=== PATIENT | female | born 2005 | race Caucasian/White ===

== ENCOUNTER 2024-08-22 17:19 | Emergency (ER) | payer MEDICAID, SELFPAY ==
--- NOTE | ~2024-08-22 | CT_ITS ---
CLINICAL HISTORY: abdominal pain n v d intractable CT Abdomen and Pelvis WO Contrast COMPARISON: None FINDINGS: Normal liver. Normal spleen. Normal kidneys. Normal adrenal glands. Normal pancreas. Status post cholecystectomy. No abnormal biliary dilation. No evidence of bowel obstruction or colitis. Normal appendix. Poorly distended bladder. Unremarkable uterus. Right ovarian follicle noted. Unremarkable left ovary. No ascites. No pneumoperitoneum. No lymphadenopathy. No acute fracture. No abdominal aortic aneurysm. IMPRESSION: No acute findings. This document has been electronically signed by: Kunal Rao MD on 08/23/2024 04:03:18
[2024-08-22 17:27] VITALS: BP 140/70; PULSE 100; O2SAT 100
[2024-08-22 17:31] VITALS: BP 138/99; PULSE 91; RESP 19; TEMP 36.6; O2SAT 100; BMI 24.6
[2024-08-22 17:55] LABS: MANUAL DIFF FLAG NO
[2024-08-22 18:15] LABS: Alanine Aminotransferase 14 U/L (0-31); Albumin Level 4.8 g/dL (3.5-5.0); Alkaline Phosphatase 68 U/L (39-117); Anion Gap 20 (12-20); Aspartate Amino Transferase 22 U/L (5-31); Bilirubin Direct 0.2 mg/dL (0.0-0.5); Bilirubin Total 0.6 mg/dL (0.0-1.0); Blood Urea Nitrogen 8 mg/dL (9-16); Calcium 10.2 mg/dL (8.4-10.2); Carbon Dioxide 15 mmol/L (22-29); Chloride 107 mmol/L (96-108); Creatinine Clr Calc Pharmacy 96.1; Estimated Glomerular Filt Rate > 60; Glucose Random 118 mg/dL (60-115); Lipase 11 U/L (8-78); Potassium 3.1 mmol/L (3.3-5.1); Sodium 139 mmol/L (135-145); Total Protein 7.8 g/dL (6.5-8.0)
[2024-08-22 18:17] LABS: HCG Quantitative < 2 mIU/mL
[2024-08-22 18:47] LABS: Basophils Absolute Auto 0.1 X10*3/uL (0.0-0.2); Basophils Percent Auto 0.5 % (0-2); Hematocrit 41.1 % (37.0-47.0); Imm Gran Abs Auto 0.19 X10*3/uL (0.00-0.03); Imm Gran Pct Auto 1.3 % (0.0-0.4); Lymphocytes Absolute Auto 2.3 X10*3/uL (1.2-4.9); Mean Corpuscular HGB Conc 34.1 g/dl (31.0-35.0); Mean Corpuscular Hemoglobin 30.2 pg (27.0-33.0); Mean Corpuscular Volume 88.8 fL (80.0-98.0); Mean Platelet Volume 12.5 fL (9.4-12.3); Monocytes Absolute Auto 0.5 X10*3/uL (0.1-1.2); Monocytes Percent Auto 3.5 % (2-11); Neutrophils Absolute Auto 11.6 x10*3/uL (2.0-8.3); Neutrophils Percent Auto 78.7 % (45-73); Platelet Count 422 X10*3/uL (160-400); Red Blood Count 4.63 X10*6/uL (4.20-5.50); Red Cell Distribution Width 12.6 % (11.0-16.0); White Blood Count 14.7 X10*3/uL (4.8-10.8)
--- NOTE | 2024-08-22 20:10 | ED_ITS ---
HPI - General Adult General Chief complaint: Abdominal Pain Stated complaint: L SIDED ABD PAIN X 2 DAYS Time Seen by Provider: 08/22/24 21:16 Source: patient Mode of arrival: ambulatory Limitations: no limitations History of Present Illness ED Provider: BRENT PADGETT narrative: 19 yo female with reported hx of intermittent stomach issues - with episodes related to ETOH. She notes she drank a lot of ETOH on Thursday night and since then has upper abdominal pain n/v/d. She states she feels weak and dehydrated. I asked her if she has alcoholism but she denies. She states I don't know why this is happening. She then tells me she has had this before but not to this extent. Her visitor is also in the room and not making eye contact with me or engaging in history. Patient notes she cannot keep anything down. She has upper abdominal pain. She has had prior cholecystectomy. She only wants IV in hand. She notes she has a headache as well and feels pressure in her head. No other hx reported such as travel/abx use. complaint: n/v/d upper abdominal pain Onset (ago): day(s) (since Thursday) Location: abdomen Radiation: non-radiation Severity: moderate Quality: constant Pain Consistency: constant Relieving factors: none Exacerbating factors: eating Associated symptoms: headaches, loss of appetite, malaise and nausea/vomiting Treatments prior to arrival: none Related Data Previous Rx's ?Medication ?Instructions ?Recorded cefuroxime axetil 250 mg tablet 250 mg PO BID 7 days #14 tabs 08/23/24 cyclobenzaprine 10 mg tablet 10 mg PO TID PRN muscle spasm #20 08/23/24 tabs ondansetron 4 mg disintegrating 4 mg PO Q8H PRN nausea and 08/23/24 tablet vomiting #20 tabs Allergies Allergy/AdvReac Type Severity Reaction Status Date / Time latex Allergy Unknown Verified 08/22/24 17:36 Review of Systems 2 Review of Systems: Constitutional : No Weight loss, No Fever, No Chills ENT/Mouth : No sore throat, No Rhinorrhea Eyes: No Swelling, No Redness Cardiovascular : No Chest Pain, No SOB, NoEdema Respiratory : No Cough, No Sputum, No Wheezing Gastrointestinal : Positive Nausea, Positive Vomiting, positive Diarrhea, positive abdominal Pain, No Hematochezia, No Melena Genitourinary : No Dysuria, No Urinary Frequency, No Hematuria, No Urgency Musculoskeletal : No joint pain, No Myalgias, No Joint Swelling Skin : No Skin Lesions, No rash Neuro : No Weakness, No Numbness, No Dizziness, pos Headache All other systems reviewed and are negative. [facility] Past Medical History Attestation statement: The following information was validated with the patient. Source: old records reviewed Medical History (Updated 08/23/24 @ 05:21 by Mayelin Joyce DO) No pertinent past medical history Surgical History (Updated 08/22/24 @ 22:09 by Mayelin Joyce DO) S/P cholecystectomy Social History Social History (Updated 08/22/24 @ 22:09 by Mayelin Joyce DO) Alcohol intake: current Alcohol intake frequency: does not drink Patient Tobacco Use Status: Tobacco use Unknown Smoked in Last 30 Days: No Use of substances other than those prescribed or required for medical reasons: No Advance Directives: No Advance Directives Information Provided: No Do you have a plan to hurt others: No Plan Physical Exam ED Vital Signs: Vital Signs - 24 hr 08/22/24 17:31 08/22/24 21:03 08/23/24 00:22 Temperature 98 F 98.3 F 98.2 F Pulse Rate 91 75 74 Respiratory Rate 19 16 16 Blood Pressure 138/99 H 142/85 H 121/68 Pulse Oximetry 100 100 97 Oxygen Delivery Method Room Air Room Air Room Air 08/23/24 04:23 Temperature 98.6 F Pulse Rate 75 Respiratory Rate 12 Blood Pressure 118/77 Pulse Oximetry 99 Oxygen Delivery Method Room Air BMI result Body Mass Index 24.6 Appearance: Alert. Oriented X3. No acute distress. Very anxious, walking around without issue Eyes: Pupils equal, round and reactive to light. ENT: Pharynx normal. Neck: Normal inspection. Neck supple. CVS: Normal heart rate and rhythm. Pulses normal. Respiratory: No respiratory distress. Breath sounds normal. Abdomen: Soft and moderate epigastric ttp Skin: Skin warm and dry. pale skin color. Normal skin turgor. Extremities: No lower extremity edema. No calf ttp Neuro: Oriented X 3. No motor deficit. No sensory deficit. CN2-12 intact Course Course Course Narrative: RME, this is a rapid medical exam performed by Cordell Cruz please refer to primary provider for complete H&P- 19 year old female presents for evaluation of abdominal and nausea. Plan for labs Reevaluation(s) Reevaluation #1: infection suspected at 255am lactic acid, cultures and ceftriaxone ordered. Reevaluation #2: she is tolerating PO at this time Reevaluation #3: patient has repeatedly asked how will you treat my pain after work up and findings I do not feel narcotics are warranted in a 19 yo female Medications Administered Discontinued Medications Generic Name Dose Route Start Last Admin Trade Name Dilshad PRN Reason Stop Dose Admin Acetaminophen 975 mg 08/23/24 03:51 08/23/24 03:54 Acetaminophen 325 Mg Tablet PO 08/23/24 03:52 975 mg ONCE ONE Administration Al Hydroxide/Mg Hydroxide 15 ml 08/23/24 04:16 08/23/24 04:38 Magnesium Hydrox/Alum Hydrox 30 Ml Oral.Susp PO 08/23/24 04:17 15 ml ONCE ONE Administration Ceftriaxone Sodium 1 gm 08/23/24 02:54 08/23/24 03:36 Ceftriaxone Sodium 1 Gm Vial IVPUSH 08/23/24 02:55 1 gm ONCE ONE Administration Diazepam 5 mg 08/22/24 23:30 08/22/24 23:39 Diazepam 10 Mg/2 Ml Cartridge IVPUSH 08/22/24 23:31 5 mg STAT STA Administration Diphenhydramine HCl 25 mg 08/22/24 21:39 08/22/24 22:29 Diphenhydramine Hcl 50 Mg/Ml Vial IVPUSH 08/22/24 21:40 25 mg ONCE ONE Administration Famotidine 20 mg 08/22/24 21:39 08/22/24 22:27 Famotidine/Pf 20 Mg/2 Ml Vial IVPUSH 08/22/24 21:40 20 mg ONCE ONE Administration Lactated Ringer's 1,000 mls @ 999 mls/hr 08/22/24 21:39 08/22/24 23:26 Lr IV 08/22/24 22:39 Infused .Q1H1M ONE Infusion Lactated Ringer's 1,000 mls @ 999 mls/hr 08/22/24 21:55 08/22/24 23:26 Lr IV 08/22/24 22:55 Infused .Q1H1M ONE Infusion Ketorolac Tromethamine 15 mg 08/22/24 21:39 08/22/24 22:25 Ketorolac Tromethamine 15 Mg/Ml Vial IVPUSH 08/22/24 21:40 15 mg ONCE ONE Administration Lidocaine HCl 15 ml 08/23/24 04:16 08/23/24 04:40 Lidocaine Hcl Viscous 2 % 15 Ml Solution MUCOUS MEM 08/23/24 04:17 15 ml ONCE ONE Administration Metoclopramide HCl 10 mg 08/22/24 21:39 08/22/24 22:27 Metoclopramide Hcl 10 Mg/2 Ml Vial IVPUSH 08/22/24 21:40 10 mg ONCE ONE Administration Medical Decision Making Medical Decision Making [facility] Narrative: 19 yo female with reported hx of intermittent stomach issues now here with n/v/d and upper abdominal pain since heavy ETOH use on Thursday. She has no other risk factors. At this time she is very anxious and refusing IV other than in hand. I am going to obtain her labs, LFTs, UA, lipase - start on IVF x 2L, supportive medications. Given her complaint I suspect pancreatitis, gastritis, viral syndrome, dehydration lipase is normal doubt pancreatitis. Differential Diagnosis Differential Diagnoses: The differential diagnosis associated with the presentation includes pancreatitis, ETOH induced gastritis, dehydration, lyte abnormality, THC emesis syndrome Admission/Observation Consideration of admission/observation: Escalation of care including admission/observation considered has not vomited in front of staff. she has been going to bathroom and drinking water against advice repeat BMP reassuring CT scan no findings she continues to ask for pain medications I see no clinical indication she is positive for THC we are going to give her a GI cocktail and plan will be to DC home no hydro or perinephric stranding on CT scan I did talk to her about THC use and her symptoms - she states she has been told before this might be cannabinoid hyperemesis syndrome Lab Data [facility] Lab Attestation statement: I reviewed the patient's lab results. repeat labs reassuring. 08/22/24 17:49 08/23/24 01:00 Labs: Lab Results 08/22/24 08/23/24 08/23/24 Range/Units 17:49 01:00 02:28 WBC 14.7 H (4.8-10.8) X10*3/uL RBC 4.63 (4.20-5.50) X10*6/uL Hgb 14.0 (12.0-16.0) g/dl Hct 41.1 (37.0-47.0) % MCV 88.8 (80.0-98.0) fL MCH 30.2 (27.0-33.0) pg MCHC 34.1 (31.0-35.0) g/dl RDW 12.6 (11.0-16.0) % Plt Count 422 H (160-400) X10*3/uL MPV 12.5 H (9.4-12.3) fL Immature Gran % (Auto) 1.3 H (0.0-0.4) % Neut % (Auto) 78.7 H (45-73) % Lymph % (Auto) 16.0 L (20-40) % Clark % (Auto) 3.5 (2-11) % Eos % (Auto) 0.0 (0-4) % Baso % (Auto) 0.5 (0-2) % Lymph # (Auto) 2.3 (1.2-4.9) X10*3/uL Clark # (Auto) 0.5 (0.1-1.2) X10*3/uL Eos # (Auto) 0.0 (0.0-0.4) X10*3/uL Baso # (Auto) 0.1 (0.0-0.2) X10*3/uL Abs Immat Gran (auto) 0.19 H (0.00-0.03) X10*3/uL Absolute Neuts (auto) 11.6 H (2.0-8.3) x10*3/uL Absolute Nucleated RBC 0.000 (0.0-0.012) X10*3/uL Nucleated RBC % (auto) 0.0 (0.0-0.2) /100WBC Sodium 139 138 (135-145) mmol/L Potassium 3.1 L 3.6 (3.3-5.1) mmol/L Chloride 107 106 (96-108) mmol/L Carbon Dioxide 15 L 20 L (22-29) mmol/L Anion Gap 20 16 (12-20) BUN 8 L 7 L (9-16) mg/dL Creatinine 0.77 0.63 (0.5-1.4) mg/dL Estim Creat Clear Calc 96.1 117.5 Estimated GFR > 60 > 60 Random Glucose 118 H 114 (60-115) mg/dL Lactic Acid (0.5-2.0) mmol/L Calcium 10.2 9.1 D (8.4-10.2) mg/dL Total Bilirubin 0.6 (0.0-1.0) mg/dL Direct Bilirubin 0.2 (0.0-0.5) mg/dL AST 22 (5-31) U/L ALT 14 (0-31) U/L Alkaline Phosphatase 68 (39-117) U/L Total Protein 7.8 (6.5-8.0) g/dL Albumin 4.8 (3.5-5.0) g/dL Lipase 11 (8-78) U/L Beta HCG, Quant < 2 mIU/mL Urine Color Yellow Urine Appearance Cloudy Urine pH 6.5 (5.0-9.0) Ur Specific Cisco 1.025 (1.005-1.025) Urine Protein 30 (1+) H (Neg-Trace) mg/dL Urine Glucose (UA) Negative (Negative) mg/dL Urine Ketones 80 (Negative) mg/dL Urine Blood Negative (Negative) Urine Nitrite Positive H (Negative) Ur Leukocyte Esterase Trace H (Negative) Urine RBC 0-2 (0-2) /HPF Urine WBC 0-5 (0-5) /HPF Ur Squamous Epith Cells 11-20 (0-2) /HPF Urine Bacteria 4+ (None Seen) Hyaline Casts >20 (0-2) /LPF Urine Opiates Screen Not Detected (Not Detect) Ur Buprenorphine Scrn Not Detected (Not Detect) ng/mL Ur Oxycodone Screen Not Detected (Not Detect) ng/mL Urine Methadone Screen Not Detected (Not Detect) ng/mL Urine Fentanyl Screen Not Detected (Not Detect) Ur Barbiturates Screen Not Detected (Not Detect) Ur Phencyclidine Scrn Not Detected (Not Detect) Ur Amphetamines Screen Not Detected (Not Detect) U Benzodiazepines Scrn Not Detected (Not Detect) Urine Cocaine Screen Not Detected (Not Detect) U Marijuana (THC) Screen POSITIVE H (Not Detect) Ethyl Alcohol < 10 mg/dL 08/23/24 Range/Units 03:32 WBC (4.8-10.8) X10*3/uL RBC (4.20-5.50) X10*6/uL Hgb (12.0-16.0) g/dl Hct (37.0-47.0) % MCV (80.0-98.0) fL MCH (27.0-33.0) pg MCHC (31.0-35.0) g/dl RDW (11.0-16.0) % Plt Count (160-400) X10*3/uL MPV (9.4-12.3) fL Immature Gran % (Auto) (0.0-0.4) % Neut % (Auto) (45-73) % Lymph % (Auto) (20-40) % Clark % (Auto) (2-11) % Eos % (Auto) (0-4) % Baso % (Auto) (0-2) % Lymph # (Auto) (1.2-4.9) X10*3/uL Clark # (Auto) (0.1-1.2) X10*3/uL Eos # (Auto) (0.0-0.4) X10*3/uL Baso # (Auto) (0.0-0.2) X10*3/uL Abs Immat Gran (auto) (0.00-0.03) X10*3/uL Absolute Neuts (auto) (2.0-8.3) x10*3/uL Absolute Nucleated RBC (0.0-0.012) X10*3/uL Nucleated RBC % (auto) (0.0-0.2) /100WBC Sodium (135-145) mmol/L Potassium (3.3-5.1) mmol/L Chloride (96-108) mmol/L Carbon Dioxide (22-29) mmol/L Anion Gap (12-20) BUN (9-16) mg/dL Creatinine (0.5-1.4) mg/dL Estim Creat Clear Calc Estimated GFR Random Glucose (60-115) mg/dL Lactic Acid 1.3 (0.5-2.0) mmol/L Calcium (8.4-10.2) mg/dL Total Bilirubin (0.0-1.0) mg/dL Direct Bilirubin (0.0-0.5) mg/dL AST (5-31) U/L ALT (0-31) U/L Alkaline Phosphatase (39-117) U/L Total Protein (6.5-8.0) g/dL Albumin (3.5-5.0) g/dL Lipase (8-78) U/L Beta HCG, Quant mIU/mL Urine Color Urine Appearance Urine pH (5.0-9.0) Ur Specific Cisco (1.005-1.025) Urine Protein (Neg-Trace) mg/dL Urine Glucose (UA) (Negative) mg/dL Urine Ketones (Negative) mg/dL Urine Blood (Negative) Urine Nitrite (Negative) Ur Leukocyte Esterase (Negative) Urine RBC (0-2) /HPF Urine WBC (0-5) /HPF Ur Squamous Epith Cells (0-2) /HPF Urine Bacteria (None Seen) Hyaline Casts (0-2) /LPF Urine Opiates Screen (Not Detect) Ur Buprenorphine Scrn (Not Detect) ng/mL Ur Oxycodone Screen (Not Detect) ng/mL Urine Methadone Screen (Not Detect) ng/mL Urine Fentanyl Screen (Not Detect) Ur Barbiturates Screen (Not Detect) Ur Phencyclidine Scrn (Not Detect) Ur Amphetamines Screen (Not Detect) U Benzodiazepines Scrn (Not Detect) Urine Cocaine Screen (Not Detect) U Marijuana (THC) Screen (Not Detect) Ethyl Alcohol mg/dL Prescription Management I considered prescription management with: Other Discharge Plan Discharge Clinical Impression: Acute UTI, Acute dehydration Abdominal pain Qualifiers: Abdominal location: generalized Qualified Code(s): R10.84 - Generalized abdominal pain Patient Disposition: Home, Self-Care Instructions: Dehydration (ED), Urinary Tract Infection in Women (ED), Abdominal Pain (ED) Additional Instructions: no acute findings on CT scan you were dehydrated we gave your IVF and it is corrected your urine has an infection in it but your CT scan shows no disease of the kidneys rest and stay hydrated return for fevers, worsening symptoms, or any other concerns bland diet - bananas, apple sauce, rice, toast FINDINGS: Normal liver. Normal spleen. Normal kidneys. Normal adrenal glands. Normal pancreas. Status post cholecystectomy. No abnormal biliary dilation. No evidence of bowel obstruction or colitis. Normal appendix. Poorly distended bladder. Unremarkable uterus. Right ovarian follicle noted. Unremarkable left ovary. No ascites. No pneumoperitoneum. No lymphadenopathy. No acute fracture. No abdominal aortic aneurysm. IMPRESSION: No acute findings Prescriptions: New cyclobenzaprine 10 mg tablet 10 mg PO TID PRN (Reason: muscle spasm) Qty: 20 0RF cefuroxime axetil 250 mg tablet 250 mg PO BID 7 Days Qty: 14 0RF ondansetron 4 mg tablet,disintegrating 4 mg PO Q8H PRN (Reason: nausea and vomiting) Qty: 20 0RF Stand Alone Forms: Work/School Release Print Language: Georgian
[2024-08-22 21:03] VITALS: BP 142/85; PULSE 75; RESP 16; TEMP 36.8; O2SAT 100
--- NOTE | 2024-08-22 21:25 | PC.NURSE ---
Pt oil changer into hospital attire, several attempts to get Iv, pt reports to painful. pt awaiting to be seen by provider.
[2024-08-22] MEDS: Lactated Ringers 1,000 ML 999 ML IV ×2 (22:21)
[2024-08-22] MEDS: Ketorolac Tromethamine 15 MG/ML VIAL IVPUSH (22:25)
[2024-08-22] MEDS: Famotidine/PF 20 MG/2 ML VIAL IVPUSH (22:27)
[2024-08-22] MEDS: Metoclopramide HCl 10 MG/2 ML VIAL IVPUSH (22:27)
[2024-08-22] MEDS: diphenhydrAMINE HCL 50 MG/ML VIAL 25 MG IVPUSH (22:29)
--- NOTE | 2024-08-22 22:31 | PC.NURSE ---
Iv placed on the left hand, medicated per mar,
[2024-08-22] MEDS: diazePAM 10 MG/2 ML CARTRIDGE 5 MG IVPUSH (23:39)
--- NOTE | 2024-08-22 23:41 | PC.NURSE ---
fluid put on pressure bags, pt medicated per mar,
[2024-08-23 00:22] VITALS: BP 121/68; PULSE 74; RESP 16; TEMP 36.8; O2SAT 97
[2024-08-23 01:32] LABS: Anion Gap 16 (12-20); Blood Urea Nitrogen 7 mg/dL (9-16); Calcium 9.1 mg/dL (8.4-10.2); Carbon Dioxide 20 mmol/L (22-29); Chloride 106 mmol/L (96-108); Creatinine Clr Calc Pharmacy 117.5; Estimated Glomerular Filt Rate > 60; Glucose Random 114 mg/dL (60-115); Potassium 3.6 mmol/L (3.3-5.1); Sodium 138 mmol/L (135-145)
--- NOTE | 2024-08-23 02:11 | PC.NURSE ---
pt reports she unable to give us a urine, Provider aware, pt requesting more pain medication,
--- NOTE | 2024-08-23 02:25 | PC.NURSE ---
pt kareemiacali cath, 400cc, ua collected and sent.
[2024-08-23 02:45] LABS: Appearance Urine Cloudy; Color Urine Yellow; Glucose Urine UA Negative (Negative); Leukocyte Esterase Urine Trace (Negative); Nitrite Urine Positive (Negative); PH 6.5 (5.0-9.0); Specific Gravity - Urine 1.025 (1.005-1.025); UMIC TRIGGER UACC YES; Urine Blood Negative (Negative); Urine Ketones 80 mg/dL (Negative); Urine Protein 30 (1+) mg/dL (Neg-Trace)
[2024-08-23 02:47] LABS: Ethanol < 10 mg/dL
[2024-08-23 02:53] LABS: Amphetamine Screen Urine Not Detected (Not Detect); Barbiturates, Urine Not Detected (Not Detect); Benzodiazepines Screen Urine Not Detected (Not Detect); Buprenorphine Scr Not Detected (Not Detect); Cannabinoid Screen Urine POSITIVE (Not Detect); Cocaine Screen Urine Not Detected (Not Detect); Fentanyl, urine Not Detected (Not Detect); Methadone Screen, Urine Not Detected (Not Detect); Opiate Screen Urine Not Detected (Not Detect); Oxycodone Screen Urine Not Detected (Not Detect); Phencyclidine Screen Urine Not Detected (Not Detect)
[2024-08-23 03:04] LABS: Bacteria Urine 4+ (None Seen); Hyaline Casts Urine >20 /LPF (0-2); RBC Urine 0-2 /HPF (0-2); UACC Culture Trigger YES; WBC Urine 0-5 /HPF (0-5)
[2024-08-23] MEDS: cefTRIAXone sodium 1 GM VIAL IVPUSH (03:36)
[2024-08-23] MEDS: Acetaminophen 325 MG TABLET 975 MG PO (03:54)
--- NOTE | 2024-08-23 04:00 | PC.NURSE ---
Pt placed on bed side monitor and medicated per mar.
[2024-08-23 04:04] LABS: Lactic Acid 1.3 mmol/L (0.5-2.0)
[2024-08-23 04:23] VITALS: BP 118/77; PULSE 75; RESP 12; TEMP 37; O2SAT 99
[2024-08-23] MEDS: Magnesium Hydrox/Alum Hydrox 30 ML ORAL.SUSP 15 ML PO (04:38)
[2024-08-23] MEDS: Lidocaine HCl Viscous 2 % 15 ML SOLUTION MUCOUS MEM (04:40)
--- NOTE | 2024-08-23 04:44 | PC.NURSE ---
medicated per mar, pt requesting to speak to provider.
--- NOTE | 2024-08-23 05:40 | PC.NURSE ---
Reviewed discharge instructions with pt, pt verbalized understanding, no sign of distress. Pt has a steady gait.
[2024-08-23 05:42] VITALS: BP 118/77; PULSE 75; RESP 12; TEMP 37; O2SAT 99
== END 2024-08-23 05:42 | disposition home or self-care (01) ==
PROVIDERS: Emergency Provider Emergency Medicine
DX: N39.0 Urinary tract infection, site not specified (principal); E86.0 Dehydration; R10.2 Pelvic and perineal pain; R51.9 Headache, unspecified; R11.2 Nausea with vomiting, unspecified; Z51.81 Encounter for therapeutic drug level monitoring; Z79.899 Other long term (current) drug therapy
CPT/HCPCS: 36415; 74176; 80048; 80076; 80307; 81001; 83605; 83690; 84702; 85025; 87040; 87086; 87088; 87186; 96361; 96374; 96375; 99285; J0696; J1200; J1308; J1885; J2765; J3360; J7120

== ENCOUNTER → 2024-08-23 02:14 | Outpatient (BNV) | payer MEDICAID, SELFPAY | PROVIDERS: Emergency Provider Emergency Medicine; Visit Provider Radiology Diagnostic Radiology | DX: R10.9 Unspecified abdominal pain (principal); R11.2 Nausea with vomiting, unspecified; R19.7 Diarrhea, unspecified | CPT/HCPCS: 74176 ==